=== PATIENT | female | born 1940 | race Caucasian/White ===

== ENCOUNTER 2020-05-27 10:41 | Outpatient (CLI) | payer MEDICARE ==
[~2020-05-27 10:41] MED LIST: ALBU18HF INH; ALEN70TA6 PO; AMLO-150 PO; AMLO10TA8 PO; ASPI-496 PO; ASPI-515 PO; CLOP75TA PO; DOCU-131 PO; ESCI10TA PO; ESCI20TA PO; FLUT1AER INH; IBUP200C8 PO; LOSA100T14 PO; LOSA50TA14 PO; OMEP-110 PO; OXYC-302 PO; POLY17PO29 PO; ROSU20TA2 PO; ROSU5TAB PO; TIOT18CA INH; TIOT4MIS3 INH
[2020-05-27] MEDS ORDERED: ROSU40TA PO (11:26)
[2020-05-27] MEDS ORDERED: CLOP75TA PO (11:26)
[2020-05-27] MEDS ORDERED: Vitamin D3 PO (11:26)
[2020-05-27] MEDS ORDERED: FEXO180T72 PO (11:26)
[2020-05-27] MEDS ORDERED: UMEC1DIS INH (11:26)
[2020-05-27 11:27] LABS: BASOPHILS # (AUTO) 0.04 x10^3/uL (0-0.1); BASOPHILS % (AUTO) 1 % (0-1); EOSINOPHILS # (AUTO) 0.11 x10^3/uL (0-0.4); EOSINOPHILS % (AUTO) 1 % (1-7); LYMPHOCYTES # (AUTO) 1.51 x10^3/uL (1-3.4); LYMPHOCYTES % (AUTO) 18 % (22-44); MD NO; MEAN CORPUSCULAR HEMOGLOBIN 29.9 pg (27.0-34.8); MEAN CORPUSCULAR HGB CONC 33.3 g/dL (32.4-35.8); MEAN CORPUSCULAR VOLUME 89.8 fL (80-100); MEAN PLATELET VOLUME 7.8 fL (7.4-10.4); MONOCYTES # (AUTO) 0.71 x10^3/uL (0.2-0.8); MONOCYTES % (AUTO) 9 % (2-9); NEUTROPHILS # (AUTO) 5.91 x10^3/uL (1.8-6.8); NEUTROPHILS % (AUTO) 71 % (42-75); PLATELET COUNT 291 x10^3/uL (130-400); RED BLOOD COUNT 4.44 x10^6/uL (3.82-5.3); RED CELL DISTRIBUTION WIDTH 14.4 % (9.6-15.2)
[2020-05-27 11:38] LABS: ALBUMIN 4.2 g/dL (3.4-5.0); CALCIUM 8.7 mg/dL (8.5-10.1); CHLORIDE 110 mmol/L (98-107)
[2020-05-27 11:41] LABS: ALANINE AMINOTRANSFERASE 17 U/L (12-78); ALKALINE PHOSPHATASE 72 U/L (45-117); BILIRUBIN,TOTAL 0.6 mg/dL (0.2-1.0); CREATININE 0.71 mg/dL (0.55-1.02); TOTAL PROTEIN 7.5 g/dL (6.4-8.2)
[2020-05-27 11:51] LABS: ANION GAP 4 mmol/L (5-15)
[2020-06-05] MEDS ORDERED: ACET-76 PO (11:19)
[2020-06-05] MEDS ORDERED: OXYC5TAB3 PO (11:21)
== END 2020-05-27 23:59 | disposition home or self-care (01) ==
LOC: STAR 10:41
PROVIDERS: ATTEND Family Medicine
DX: Z01.818 Encounter for other preprocedural examination (principal)
CPT/HCPCS: 36415; 80053; 85025